=== PATIENT | male | born 1950 ===

== ENCOUNTER 2017-09-26 06:41 | Day surgery (SDC) | payer MEDICARE ==
[2015-01-09 07:54] VITALS: BMI 25.0
[2017-09-26] MEDS ORDERED: Lactated Ringer's 1,000 ML IV ONE (07:18)
[2017-09-26] MEDS ORDERED: Lidocaine Hydrochloride 1% 20 ML ONE (07:19)
[2017-09-26] MEDS ORDERED: Bupivacaine 0.5% Inj(30mL) ONE (07:19)
[2017-09-26] MEDS ORDERED: Propofol 10 mg/ml Inj (20 ML) ONE (07:35)
[2017-09-26] MEDS ORDERED: Succinylcholine 200 mg/10 ml Inj IV ONE (07:35)
[2017-09-26] MEDS ORDERED: Lidocaine 4% (Laryng-O-Jet) Kit MM ONE (07:35)
[2017-09-26] MEDS ORDERED: Midazolam 2 MG/2 ML VIAL ONE (08:57)
[2017-09-26] MEDS ORDERED: ePHEDrine 50 mg/ml Inj ONE (08:58)
[2017-09-26] MEDS ORDERED: Lidocaine 1% Inj (20ml) INFIL ONE ×2 (10:14→10:40)
[2017-09-26] MEDS ORDERED: Albuterol HFA 90 mcg/actuation (8 g) ONE (10:26)
[2017-09-26] MEDS ORDERED: Lactated Ringer's 1,000 ML IV SCH (11:00)
[2017-09-26 13:14] VITALS: RESP 18
[2017-09-26] MEDS ORDERED: Bacitracin OINT 15GM TOP SCH (13:15)
[2017-09-26 18:51] VITALS: BP 145/80; PULSE 83; TEMP 99.3; O2SAT 96
--- NOTE | 2017-09-27 06:57 | OP ---
PROCEDURE DATE: 09/26/2017 PREOPERATIVE DIAGNOSIS: Phimosis. POSTOPERATIVE DIAGNOSIS: Phimosis. PROCEDURE PERFORMED: Circumcision. SURGEON: Star Graham MD DESCRIPTION OF PROCEDURE: The patient was placed in the operating room table in a supine position given general anesthesia. The area of the groin was draped and prepped in a sterile manner. Immediately noted that the patient has a unreducible foreskin. The tissue appears to be very thickened and fused to the glans penis. blunt dissection to create a dissection plain and there was really none to be had, so I made the incision to remove indurated foreskin tissue, came very close to the urethral meatus; however, I was able to establish a reference line for the distal portion of the suturing line. Once I made that decision where that line was going to be, I then used 4-0 chromic to sew the proximal edge to the newly created distal edge and then placed a compressive Coban dressing over the wound site. Blood loss was less than 10 mL. The patient was taken then from the operating room in good condition. Star Graham MD
== END 2017-09-26 19:00 | disposition home or self-care (01) ==
LOC: H.OPSURG 06:41
PROVIDERS: ATTEND Urology
DX: N47.1 Phimosis (principal); I10 Essential (primary) hypertension; Z87.891 Personal history of nicotine dependence; R06.83 Snoring
CPT/HCPCS: 54161; 88305; J0330; J0690; J2001; J2250; J3010; J7120